=== PATIENT | male | born 1950 | race African-American/Black ===

== ENCOUNTER 2024-04-05 15:12 | Emergency (ER) | payer MEDICARE, OTHER ==
[~2024-04-05] VITALS: Ht 177.8 cm; Wt 100.0 kg
[~2024-04-05 15:12] MED LIST: TAMS-11 PO
[2024-04-05 15:39] VITALS: BP 125/62; PULSE 80; RESP 20; TEMP 98.5; O2SAT 96
[2024-04-05] MEDS ORDERED: DEXT30SU17 MT (18:59)
[2024-04-05] MEDS ORDERED: TOPUD MT (18:59)
== END 2024-04-05 19:35 | disposition home or self-care (01) ==
LOC: ER 15:12
DX: U07.1 COVID-19 (principal); J20.8 Acute bronchitis due to other specified organisms; F14.10 Cocaine abuse, uncomplicated
CPT/HCPCS: 71045; 99283